=== PATIENT | female | born 1980 | race Caucasian/White ===

== ENCOUNTER 2017-12-08 00:54 | Inpatient (IN) | payer BC ==
[2017-12-08 01:37] VITALS: BMI 25.4
--- NOTE | 2017-12-08 01:40 | OBADHP ---
Datetime: 12/08/2017 01:36 Admit Comment, IP Provider: 37-year-old 004 full-term presents to the ED in active labor. Glory ent reports spontaneous rupture of membranes approximately 45 minutes before presentation. Past medical history none Past surgical history 1 Medications vitamins No known drug allergies Obstetrical history 1, successful 3 Social history no tobacco, drugs, no alcohol Assessment: Active labor, impending delivery Plan: Admit for management of delivery Pelvic Type - PN: Adequate Extremities - PN: Normal Abdomen - PN: Normal Back - PN: Normal Breast - PN: Normal Lungs - PN: Normal Heart - PN: Normal Thyroid - PN: Normal Neurologic - PN: Normal HEENT - PN: Normal General - PN: Normal FHR - Baseline A Provider: 120s-130s Membranes, Provider: Ruptured Contraction Comments Provider: q2-3min IP Hx Assessment: The History has been Reviewed and is Current Vital Signs Provider: Reviewed; Within Normal Limits IP Chief Complaint: Uterine contractions; Suspected ruptured membranes NICHD Variability Prov Fetus A: Moderate 6-25bpm NICHD Accel Fetus A IP Provider: [id number] FHR Category Provider Fetus A: Category I NICHD Decel Fetus A IP Provider: None Dilatation, Provider: 9 Effacement, Provider: 100 Station, Provider: 1 Genitourinary Exam: Normal DTRs - PN: Normal IP Adm Impression: Term, intrauterine ; Active labor; Ruptured Membranes IP Admit Plan: Admit to unit; Initiate labor protocol
[2017-12-08] MEDS ORDERED: Benzocaine/Menthol SPRAY TOP PRN ×2 (01:43→04:41)
[2017-12-08] MEDS ORDERED: Oxycodone/Acetaminophen 5/325 mg Tab PO PRN ×4 (01:43→04:41)
--- NOTE | 2017-12-08 01:57 | OBDS ---
MATERNAL INFORMATION Provider Comments: Successful vaginal delivery after . Patient delivered viable infant female with Apgars of 9 and 9 at one and 5 minutes respectively. N uchal cord 1 reduced. Placenta delivered spontaneously. No lacerations, perineum intact. Uterus fir m and appropriately hemostatic following delivery. Patient tolerated delivery well. No complications. Estimated blood loss 300 mL LABOR SUMMARY EDC: 12/14/2017 00:00 No. Babies in Wo: 1 VAGINAL DELIVERY Episiotomy: None Laceration Extension: N/A Laceration Type: None Laceration Repair: Not Applicable BABY A INFORMATION Method of Delivery: Vaginal INFANT INFORMATION BABY A Sex: Female
[2017-12-08 02:07] LABS: BASO % 0.2 % (0.0-2.0); EOS % 0.1 % (0.0-4.0); LYMPH # 1.8 K/uL (1.0-4.3); MEAN CORPUSCULAR HEMOGLOBIN 28.9 pg (27.0-31.0); MEAN CORPUSCULAR HGB CONC 32.9 g/dL (33.0-37.0); MEAN PLATELET VOLUME 9.2 fl (7.2-11.7); MONO # 0.7 K/uL (0.0-0.8); MONO % 5.5 % (0.0-10.0); NEUT # 9.7 K/uL (1.8-7.0); NEUT % 79.2 % (50.0-75.0); RBC 3.81 Mil/uL (3.80-5.20); RED CELL DISTRIBUTION WIDTH 13.5 % (11.5-14.5); WHITE BLOOD COUNT 12.2 K/uL (4.8-10.8)
[2017-12-08] MEDS: Multivitamin With Minerals Tab PO SCH (08:30)
[2017-12-08] MEDS ORDERED: Multivitamin With Minerals Tab PO SCH (09:00)
[2017-12-08 09:12] LABS: BASO % 0.1 % (0.0-2.0); EOS % 0.1 % (0.0-4.0); HEMOGLOBIN 9.7 g/dL (12.0-16.0); LYMPH # 1.9 K/uL (1.0-4.3); LYMPH % 13.1 % (20.0-40.0); MEAN CELL VOLUME 88.1 fl (81.0-99.0); MEAN PLATELET VOLUME 9.4 fl (7.2-11.7); MONO # 0.7 K/uL (0.0-0.8); MONO % 4.8 % (0.0-10.0); NEUT # 11.9 K/uL (1.8-7.0); NEUT % 81.9 % (50.0-75.0); RBC 3.35 Mil/uL (3.80-5.20); RED CELL DISTRIBUTION WIDTH 13.5 % (11.5-14.5); WHITE BLOOD COUNT 14.6 K/uL (4.8-10.8)
[2017-12-09] MEDS: Multivitamin With Minerals Tab PO SCH (08:49)
--- NOTE | 2017-12-09 10:17 | OBPPN ---
Datetime: 12/09/2017 10:12 PP Pain Prov: Within normal limits PP Nausea Prov: Denies PP Flatus Prov: Yes PP Breasts Prov: Normal PP Heart Prov: Normal PP Lungs Prov: Normal PP Abdomen/Uterus Prov: Normal PP Lochia Prov: Normal PP Vulva/Perineum Prov: Normal PP CVA Tenderness Prov: Normal PP Extremities Prov: Normal PP Comments Phys Exam Prov: Fundus firm under umbilicus PP Impression Prov: Normal progression PP Plan Prov: Continue present management PP Progress Note Prov: Patient denies CP, no SOB, no N/V, tolerating PO diet, ambulating/voiding wel l, mild lochia, abdominal pain tolerable with meds, A/P PPD #1 1. Continue orders 2. Encourage ambulation/ 3. Reg diet IP PP Procedures: None Vital Signs Provider PP: Reviewed; Within Normal Limits
--- NOTE | 2017-12-09 15:06 | OBDCSUM ---
Datetime: 12/09/2017 15:05 Discharged to, Provider: Home Follow up at, Provider: OB Disch Instr Activity: Normal activity Disch Instr Diet: Regular Discharge Instructions, Provider: Routine instructions given Discharge Diagnosis, Provider: Term Delivered Discharge Time: 12/09/2017 15:05 Follow up in weeks, Provider: 6 wks Disch Referrals: None Contraception discussed, Prov: Yes
[2017-12-09 20:42] VITALS: BP 136/77; PULSE 79; RESP 20; TEMP 98.2
== END 2017-12-09 16:30 | disposition home or self-care (01) | DRG 775 ==
LOC: H.EROB2 00:54 → H.L&D 01:38 → H.OB/GYN 03:30
PROVIDERS: ADMIT Obstetrics & Gynecology; ATTEND Obstetrics & Gynecology
PROC: 4A1HXCZ Monitoring of Products of Conception, Cardiac Rate, External Approach (ICD-10-PCS; principal; 2017-12-08)
PROC: 10E0XZZ Delivery of Products of Conception, External Approach (ICD-10-PCS; 2017-12-08)
DX: O69.81X0 Labor and delivery complicated by cord around neck, without compression, not applicable or unspecified (principal); Z37.0 Single live birth; O34.211 Maternal care for low transverse scar from previous cesarean delivery; N85.8 Other specified noninflammatory disorders of uterus; Z3A.39 39 weeks gestation of pregnancy